=== PATIENT | female | born 1940 | race Caucasian/White ===

== ENCOUNTER 2016-12-30 07:37 | Day surgery (SDC) | payer MEDICARE, BC ==
--- NOTE | ~2016-12-30 | EGD ---
EGD REPORT [facility] [address] [place]. [id number] NAME: MELANY MORRIS : [birth year] [place] [facility] [place] [id number] AGE: 76 ADM/REG DATE : 12/30/16 MR#: [id number] REPORT SERV DATE: 12/30/16 DICTATED BY: JOY SUTTON. DATE: 12/30/16 REPORT STATUS : Draft TRANSCRIBED BY: [facility] DATE: 12/30/16 [facility] Patient Name: Melany Morris Date of : 1940 Attending MD: JOY SUTTON MD Procedure Date No Time: 12/30/2016 Procedure: Upper GI endoscopy Indications: Portal hypertension with established esophageal varices; propranolol/omeprazole. ROY cirrhosis with splenomegaly. Patient Profile: Informed consent was obtained from the patient by me prior to the procedure. Risks, benefits, and alternatives were discussed including the risk of bleeding, perforation, infection, reaction to medicine, missed lesion, and cardiopulmonary complications. Referring MD: MARIALUISA MINER Medicines: Monitored Anesthesia Care Complications: No immediate complications. Procedure: Pre-Anesthesia Assessment: - ASA Grade Assessment: III - A patient with severe systemic disease. After obtaining informed consent, the endoscope was passed under direct vision. Throughout the procedure, the patient's blood pressure, pulse, and oxygen saturations were monitored continuously. The GIF [id number] was introduced through the mouth, and advanced to the second part of duodenum. The endoscope was withdrawn with careful examination all mucosal surfaces including retroflexion stomach. The upper GI endoscopy was accomplished without difficulty. The patient tolerated the procedure well. Findings: The examined duodenum was normal. Mild portal hypertensive gastropathy was found in the gastric body. The cardia, gastric antrum and gastric fundus (on retroflexion) were normal. Grade II varices were found in the lower third of the esophagus, no stigmata. Impression: - Normal examined duodenum. - Portal hypertensive gastropathy. - Normal cardia, antrum and gastric fundus. - Grade II esophageal varices. Recommendation: - Patient has a contact number available for EGD REPORT [address] [address] NAME: MELANY MORRIS : [birth year] [place] [facility] [place] [id number] AGE: 76 ADM/REG DATE : 12/30/16 MR#: [id number] REPORT SERV DATE: 12/30/16 DICTATED BY: JOY SUTTON DATE: 12/30/16 REPORT STATUS : Draft TRANSCRIBED BY: [employer] DATE: 12/30/16 emergencies. The signs and symptoms of potential delayed complications were discussed with the patient. Return to normal activities tomorrow. Written discharge instructions were provided to the patient. - Regular diet. - Continue present medications. - Repeat EGD Mem AA one year. Procedure Code(s): --- Professional --- 30333, Esophagogastroduodenoscopy, flexible, transoral; diagnostic, including collection of specimen(s) by brushing or washing, when performed (separate procedure) Diagnosis Code(s): --- Professional --- K76.6, Portal hypertension K31.89, Other diseases of stomach and duodenum I85.10, Secondary esophageal varices without bleeding CPT copyright 2013 [employer]. All rights reserved. The codes documented in this report are preliminary and upon mold runner review may be revised to meet current compliance requirements. JOY SUTTON MD 12/30/2016 9:31 AM This report has been signed electronically. Number of Addenda: 0 Note Initiated On: 12/30/2016 9:07 AM Scope Withdrawal Time 0 hours 0 minutes 0 seconds [address] [place] [id number]
[~2016-12-30 07:37] MED LIST: ARIMIDEX1 PO; BEN25 PO; FERROUS SULF325 M1 PO; FLONASE NAS; HUMULIN R1 ML SC; I20 PO; L20 PO; L40 PO; MULTIPLE VIT PO; PRILO PO; VITA10 PO; VITAMIN D1000 UNI1 PO; VITE PO; VITE1000 PO
[2016-12-30 07:56] LABS: BASOPHILS 0.3 %; BASOPHILS ABSOLUTE 0.01 10/3/uL (0.0-0.16); EOSINOPHILS 3.6 %; EOSINOPHILS ABSOLUTE 0.11 10/3/uL (0.0-0.53); HEMOGLOBIN 12.6 g/dL (12.0-16.0); LYMPHOCYTES 21.6 %; LYMPHOCYTES ABSOLUTE 0.66 10/3/uL (0.67-4.30); MEAN PLATELET VOLUME 10.6 fL (9.2-13.0); MONOCYTES 13.7 %; MONOCYTES ABSOLUTE 0.42 10/3/uL (0.21-1.20); NEUTROPHILS 60.8 %; NEUTROPHILS ABSOLUTE 1.86 10/3/uL (2.02-8.40); PLATELET COUNT 67 10/3/uL (150-400); RED CELL COUNT 4.07 10/6/uL (4.0-5.6); WHITE BLOOD CELLS 3.1 10/3/uL (4.5-10.5)
[2016-12-30 07:57] LABS: HEMATOCRIT 37.8 % (36.0-48.0); MANUAL DIFF NO %; MEAN CORPUS HGB CONC 33.3 g/dL (32.0-36.0); MEAN CORPUSCULAR VOLUME 92.9 fL (80-100)
[2016-12-30 08:12] LABS: PLATELET ESTIMATE DEC (ADEQUATE); RBC MORPHOLOGY NORM (NORMAL)
== END 2016-12-30 23:59 | disposition home or self-care (01) ==
LOC: DMU 07:37
PROVIDERS: Internal Medicine Gastroenterology
PROC: 0DJ08ZZ Inspection of Upper Intestinal Tract, Via Natural or Artificial Opening Endoscopic (ICD-10-PCS; principal; 2016-12-30 08:00)
DX: K31.89 Other diseases of stomach and duodenum (principal); I85.10 Secondary esophageal varices without bleeding; K76.6 Portal hypertension; I10 Essential (primary) hypertension; Z85.3 Personal history of malignant neoplasm of breast; J45.909 Unspecified asthma, uncomplicated
CPT/HCPCS: 82962; 85025